=== PATIENT | female | born 1965 | race Caucasian/White ===

== ENCOUNTER 2023-03-30 06:00 | Observation (INO) | payer OTHER ==
[2023-03-30] MEDS ORDERED: KETOROLAC TROMETHAMINE 15 MG/ML VIAL IM ONE (08:12)
[2023-03-30] MEDS: KETOROLAC TROMETHAMINE 15 MG/ML VIAL IVPUSH ONE ×2 (08:16→08:18)
[2023-03-30] MEDS ORDERED: KETOROLAC TROMETHAMINE 15 MG/ML VIAL ONE (08:17)
[2023-03-30] MEDS ORDERED: predniSONE 10 MG TABLET (UD) PO ONE (08:58)
[2023-03-30] MEDS ORDERED: predniSONE 10 MG TABLET (UD) ONE (09:52)
[2023-03-30] MEDS ORDERED: morphine SULFATE 4 MG/ML VIAL IVPUSH ONE (10:35)
[2023-03-30] MEDS ORDERED: morphine SULFATE 4 MG/ML VIAL ONE (10:54)
[2023-03-30 11:20] LABS: BASO % 1.4 % (0-2.0); EOS % 1.9 % (0-4.5); HEMATOCRIT 25.3 % (32.4-45.2); HEMOGLOBIN 8.5 GM/dL (10.7-15.3); LYMPH % 14.7 % (8-40); MCH 27.6 pg (25.7-33.7); MCHC 33.5 g/dl (32.0-36.0); MEAN CELL VOLUME 82.4 fl (80-96); MEAN PLT VOLUME 6.9 fl (7.5-11.1); MONO % 6.6 % (3.8-10.2); NEUT % 75.4 % (42.8-82.8); PLATELET COUNT 653 10^3/uL (134-434); RBC 3.07 M/mm3 (3.60-5.2); RDW 15.6 % (11.6-15.6); WHITE BLOOD COUNT 10.4 K/mm3 (4.0-10.0)
[2023-03-30 11:25] LABS: INR 1.24 (0.83-1.09); PROTHROMBIN TIME (PATIENT) 14.4 SEC (9.7-13.0)
[2023-03-30 11:28] LABS: ACTIVATED PTT 26.7 SECONDS (25.2-36.5)
[2023-03-30 11:43] LABS: POTASSIUM 3.6 mmol/L (3.5-5.1)
[2023-03-30 11:46] LABS: CALCIUM 8.8 mg/dL (8.5-10.1)
[2023-03-30 11:47] LABS: ALBUMIN 2.4 g/dl (3.4-5.0); BLOOD UREA NITROGEN 6.2 mg/dL (7-18)
[2023-03-30 11:49] LABS: CREATININE 0.5 mg/dL (0.55-1.3)
[2023-03-30 11:51] LABS: BILIRUBIN,TOTAL 0.2 mg/dL (0.2-1); TOT PROT 6.2 g/dl (6.4-8.2)
[2023-03-30] MEDS ORDERED: SODIUM CHLORIDE 0.9% 1000 ML INFUS.BAG IV ONE (11:55)
[2023-03-30 16:52] VITALS: RESP 20
[2023-03-30 17:38] VITALS: BMI 31.0
[2023-03-30] MEDS: KETOROLAC TROMETHAMINE 15 MG/ML VIAL IVPUSH PRN (18:24)
[2023-03-30] MEDS: ACETAMINOPHEN 325 MG TABLET (FP) PO PRN (22:15)
[2023-03-31] MEDS: KETOROLAC TROMETHAMINE 15 MG/ML VIAL IVPUSH PRN (03:46)
[2023-03-31] MEDS: ACETAMINOPHEN 325 MG TABLET (FP) PO PRN (06:34)
[2023-03-31 08:12] LABS: BASO % 0.8 % (0-2.0); EOS % 3.8 % (0-4.5); HEMOGLOBIN 7.5 GM/dL (10.7-15.3); MCH 26.9 pg (25.7-33.7); MCHC 32.5 g/dl (32.0-36.0); MEAN PLT VOLUME 7.3 fl (7.5-11.1); MONO % 7.3 % (3.8-10.2); NEUT % 61.1 % (42.8-82.8); PLATELET COUNT 633 10^3/uL (134-434); RBC 2.77 M/mm3 (3.60-5.2); RDW 15.3 % (11.6-15.6); WHITE BLOOD COUNT 8.3 K/mm3 (4.0-10.0)
[2023-03-31 08:26] LABS: POTASSIUM 3.6 mmol/L (3.5-5.1)
[2023-03-31 08:35] LABS: TOT PROT 5.7 g/dl (6.4-8.2)
[2023-03-31 09:03] LABS: CALCIUM 9.1 mg/dL (8.5-10.1)
[2023-03-31 09:05] LABS: BLOOD UREA NITROGEN 6.9 mg/dL (7-18); MAGNESIUM 1.9 mg/dL (1.8-2.4)
[2023-03-31 09:08] LABS: CREATININE 0.4 mg/dL (0.55-1.3)
[2023-03-31 09:09] LABS: PHOSPHOROUS 3.3 mg/dL (2.5-4.9)
[2023-03-31 09:10] LABS: BILIRUBIN,TOTAL 0.3 mg/dL (0.2-1)
[2023-03-31] MEDS ORDERED: predniSONE 10 MG TABLET (UD) PO SCH (10:00)
[2023-03-31] MEDS ORDERED: PANTOPRAZOLE 40 MG TABLET PO SCH (10:00)
[2023-03-31] MEDS ORDERED: traMADol HCL 50 MG TABLET PO ONE (14:00)
[2023-03-31 18:04] VITALS: PULSE 99; TEMP 98
[2023-03-31 18:08] VITALS: BP 125/85
== END 2023-03-31 19:39 | disposition home health service (06) ==
LOC: JER 06:00 → JERBED 12:09 → J8W 16:58
PROVIDERS: ADMIT Internal Medicine; ATTEND Nurse Practitioner Family
PROC: 3E0233Z Introduction of Anti-inflammatory into Muscle, Percutaneous Approach (ICD-10-PCS; principal; 2023-03-30)
PROC: 3E0333Z Introduction of Anti-inflammatory into Peripheral Vein, Percutaneous Approach (ICD-10-PCS; 2023-03-30)
PROC: 3E033NZ Introduction of Analgesics, Hypnotics, Sedatives into Peripheral Vein, Percutaneous Approach (ICD-10-PCS; 2023-03-30)
PROC: 3E0337Z Introduction of Electrolytic and Water Balance Substance into Peripheral Vein, Percutaneous Approach (ICD-10-PCS; 2023-03-30)
DX: M06.9 Rheumatoid arthritis, unspecified (principal); R52 Pain, unspecified; D64.9 Anemia, unspecified; Z88.0 Allergy status to penicillin
CPT/HCPCS: 0241U-QW; 36415; 80053; 82272; 82607; 82728; 82746; 83540; 83550; 83735; 84100; 84443; 85025; 85610; 85730; 93005; 93010; 96372; 96374; 96375; 97116-GP; 97161-GP; 99285-25; G0378

== ENCOUNTER 2023-06-04 17:34 | Inpatient (IN) | payer OTHER ==
[2023-06-04 17:37] VITALS: BMI 32.1
[2023-06-04] MEDS ORDERED: predniSONE 20 MG TABLET (UD) ONE (19:44)
[2023-06-04] MEDS ORDERED: morphine SULFATE 4 MG/ML VIAL ONE (19:44)
[2023-06-04] MEDS: morphine CARPU-JECT 4 MG/1 ML DISP.SYRIN IVPUSH ONE (19:53)
[2023-06-04] MEDS: predniSONE 20 MG TABLET (UD) PO ONE (19:54)
[2023-06-04 20:00] LABS: BASO % 1.2 % (0-2.0); EOS % 1.9 % (0-4.5); HEMATOCRIT 30.7 % (32.4-45.2); HEMOGLOBIN 10.1 GM/dL (10.7-15.3); LYMPH % 20.3 % (8-40); MCH 26.3 pg (25.7-33.7); MCHC 32.8 g/dl (32.0-36.0); MEAN CELL VOLUME 80.3 fl (80-96); MEAN PLT VOLUME 6.8 fl (7.5-11.1); MONO % 5.7 % (3.8-10.2); NEUT % 70.9 % (42.8-82.8); PLATELET COUNT 743 10^3/uL (134-434); RBC 3.83 M/mm3 (3.60-5.2); RDW 17.2 % (11.6-15.6); WHITE BLOOD COUNT 8.7 K/mm3 (4.0-10.0)
[2023-06-04 20:25] LABS: POTASSIUM 4.4 mmol/L (3.5-5.1)
[2023-06-04 20:26] LABS: CALCIUM 9.1 mg/dL (8.5-10.1)
[2023-06-04 20:27] LABS: ALBUMIN 2.5 g/dl (3.4-5.0); BLOOD UREA NITROGEN 11.2 mg/dL (7-18)
[2023-06-04 20:30] LABS: CREATININE 0.5 mg/dL (0.55-1.3)
[2023-06-04 20:31] LABS: TOT PROT 6.9 g/dl (6.4-8.2)
[2023-06-04 20:32] LABS: BILIRUBIN,TOTAL 0.2 mg/dL (0.2-1)
[2023-06-04 21:21] LABS: ERYTHROCYTE SEDIMENTATION RATE 106 mm/hr (0-30)
[2023-06-05] MEDS: ACETAMINOPHEN 325 MG TABLET (FP) PO PRN (01:22)
[2023-06-05] MEDS: LACTATED RINGERS SOLUTION 1,000 ML/1,000 ML INFUS.BAG IV SCH (01:31)
[2023-06-05 02:48] LABS: EPI CELLS 13 /uL (0-25.1); HYALINE CASTS 0 /uL (0-3.1); PH,URINE 5.5 (5.0-8.0); URINE APPEARANCE CLOUDY; URINE BACTERIA >9,000 /uL (0-1359); URINE BILIRUBIN NEGATIVE (NEGATIVE); URINE COLOR YELLOW; URINE GLUCOSE (UA) NEGATIVE (NEGATIVE); URINE KETONE TRACE (NEGATIVE); URINE LEUK ESTERASE 2+ (NEGATIVE); URINE NITRITE NEGATIVE (NEGATIVE); URINE PROTEIN NEGATIVE (NEGATIVE); URINE RBC 14 /uL (0-23.9); URINE WBC 212 /uL (0-25.8)
[2023-06-05] MEDS: PANTOPRAZOLE 40 MG TABLET PO SCH (06:59)
[2023-06-05 09:00] LABS: BASO % 0.2 % (0-2.0); HEMATOCRIT 28.4 % (32.4-45.2); HEMOGLOBIN 9.3 GM/dL (10.7-15.3); LYMPH % 17.4 % (8-40); MCH 26.4 pg (25.7-33.7); MCHC 32.7 g/dl (32.0-36.0); MEAN CELL VOLUME 80.7 fl (80-96); MEAN PLT VOLUME 7.2 fl (7.5-11.1); MONO % 4.3 % (3.8-10.2); NEUT % 78.1 % (42.8-82.8); PLATELET COUNT 681 10^3/uL (134-434); RBC 3.52 M/mm3 (3.60-5.2); RDW 16.5 % (11.6-15.6)
[2023-06-05 09:17] LABS: POTASSIUM 4.5 mmol/L (3.5-5.1)
[2023-06-05 09:24] LABS: ALBUMIN 2.2 g/dl (3.4-5.0); BLOOD UREA NITROGEN 9.3 mg/dL (7-18)
[2023-06-05 09:26] LABS: CREATININE 0.4 mg/dL (0.55-1.3)
[2023-06-05 09:27] LABS: BILIRUBIN,TOTAL 0.2 mg/dL (0.2-1); TOT PROT 6.5 g/dl (6.4-8.2)
[2023-06-05] MEDS: predniSONE 20 MG TABLET (UD) PO SCH (10:57)
[2023-06-06] MEDS: predniSONE 20 MG TABLET (UD) PO SCH (06:14)
[2023-06-06 10:03] LABS: BASO % 0.7 % (0-2.0); EOS % 0.3 % (0-4.5); HEMATOCRIT 29.9 % (32.4-45.2); HEMOGLOBIN 9.5 GM/dL (10.7-15.3); LYMPH % 15.7 % (8-40); MCH 25.6 pg (25.7-33.7); MCHC 31.6 g/dl (32.0-36.0); MEAN CELL VOLUME 80.9 fl (80-96); MEAN PLT VOLUME 7.3 fl (7.5-11.1); MONO % 3.4 % (3.8-10.2); NEUT % 79.9 % (42.8-82.8); PLATELET COUNT 736 10^3/uL (134-434); RDW 16.8 % (11.6-15.6); WHITE BLOOD COUNT 11.9 K/mm3 (4.0-10.0)
[2023-06-06] MEDS: LEFLUNOMIDE 10 MG TABLET PO SCH (10:03)
[2023-06-06 10:24] LABS: POTASSIUM 4.3 mmol/L (3.5-5.1)
[2023-06-06 10:43] LABS: CALCIUM 9.5 mg/dL (8.5-10.1)
[2023-06-06 10:44] LABS: BLOOD UREA NITROGEN 12.3 mg/dL (7-18)
[2023-06-06 10:47] LABS: CREATININE 0.5 mg/dL (0.55-1.3)
[2023-06-06] MEDS ORDERED: morphine CARPU-JECT 2 MG/1 ML DISP.SYRIN IVPUSH PRN (13:33)
[2023-06-06] MEDS: IBUPROFEN 400 MG TABLET (FP) PO SCH (14:03)
[2023-06-07 08:33] LABS: BASO % 0.7 % (0-2.0); EOS % 1.4 % (0-4.5); HEMATOCRIT 27.8 % (32.4-45.2); HEMOGLOBIN 9.1 GM/dL (10.7-15.3); LYMPH % 34.6 % (8-40); MCH 26.4 pg (25.7-33.7); MCHC 32.8 g/dl (32.0-36.0); MEAN CELL VOLUME 80.6 fl (80-96); MEAN PLT VOLUME 7.1 fl (7.5-11.1); NEUT % 56.3 % (42.8-82.8); PLATELET COUNT 713 10^3/uL (134-434); RBC 3.44 M/mm3 (3.60-5.2); WHITE BLOOD COUNT 11.1 K/mm3 (4.0-10.0)
[2023-06-07 08:41] LABS: POTASSIUM 3.8 mmol/L (3.5-5.1)
[2023-06-07 08:44] LABS: ALBUMIN 2.4 g/dl (3.4-5.0); CALCIUM 9.2 mg/dL (8.5-10.1)
[2023-06-07 08:45] LABS: BLOOD UREA NITROGEN 13.2 mg/dL (7-18); MAGNESIUM 2.2 mg/dL (1.8-2.4)
[2023-06-07 08:48] LABS: CREATININE 0.5 mg/dL (0.55-1.3); PHOSPHOROUS 4.4 mg/dL (2.5-4.9)
[2023-06-07 08:49] LABS: BILIRUBIN,TOTAL 0.2 mg/dL (0.2-1); TOT PROT 6.2 g/dl (6.4-8.2)
[2023-06-07] MEDS: ENOXAPARIN NA (PORCINE) 40 MG/0.4 ML DISP.SYRIN SQ ONE ×2 (13:03→13:37)
[2023-06-07] MEDS ORDERED: ENOXAPARIN NA (PORCINE) 40 MG/0.4 ML DISP.SYRIN SQ SCH (22:00)
[2023-06-08 04:58] VITALS: RESP 18
[2023-06-08 07:31] LABS: POTASSIUM 3.8 mmol/L (3.5-5.1)
[2023-06-08 07:38] LABS: CALCIUM 8.6 mg/dL (8.5-10.1)
[2023-06-08 07:39] LABS: ALBUMIN 2.4 g/dl (3.4-5.0); BLOOD UREA NITROGEN 11.4 mg/dL (7-18); MAGNESIUM 1.9 mg/dL (1.8-2.4)
[2023-06-08 07:42] LABS: CREATININE 0.5 mg/dL (0.55-1.3); PHOSPHOROUS 4.2 mg/dL (2.5-4.9)
[2023-06-08 07:43] LABS: BILIRUBIN,TOTAL 0.2 mg/dL (0.2-1); TOT PROT 6.2 g/dl (6.4-8.2)
[2023-06-08 07:53] LABS: BASO % 0.6 % (0-2.0); EOS % 1.6 % (0-4.5); HEMATOCRIT 29.2 % (32.4-45.2); HEMOGLOBIN 9.8 GM/dL (10.7-15.3); LYMPH % 35.4 % (8-40); MCHC 33.6 g/dl (32.0-36.0); MEAN CELL VOLUME 80.4 fl (80-96); MEAN PLT VOLUME 7.1 fl (7.5-11.1); MONO % 7.9 % (3.8-10.2); NEUT % 54.5 % (42.8-82.8); PLATELET COUNT 711 10^3/uL (134-434); RBC 3.64 M/mm3 (3.60-5.2); RDW 16.7 % (11.6-15.6); WHITE BLOOD COUNT 10.6 K/mm3 (4.0-10.0)
[2023-06-08] MEDS: ENOXAPARIN NA (PORCINE) 40 MG/0.4 ML DISP.SYRIN SQ SCH (10:14)
[2023-06-09 10:02] LABS: BASO % 0.6 % (0-2.0); EOS % 2.3 % (0-4.5); HEMATOCRIT 30.8 % (32.4-45.2); HEMOGLOBIN 9.8 GM/dL (10.7-15.3); LYMPH % 30.9 % (8-40); MCHC 31.8 g/dl (32.0-36.0); MEAN CELL VOLUME 81.6 fl (80-96); MEAN PLT VOLUME 7.3 fl (7.5-11.1); MONO % 6.7 % (3.8-10.2); NEUT % 59.5 % (42.8-82.8); PLATELET COUNT 753 10^3/uL (134-434); RBC 3.77 M/mm3 (3.60-5.2); RDW 17.2 % (11.6-15.6); WHITE BLOOD COUNT 13.3 K/mm3 (4.0-10.0)
[2023-06-09 10:11] LABS: POTASSIUM 3.9 mmol/L (3.5-5.1)
[2023-06-09 10:18] LABS: ALBUMIN 2.6 g/dl (3.4-5.0)
[2023-06-09 10:19] LABS: BLOOD UREA NITROGEN 10.8 mg/dL (7-18); MAGNESIUM 2.3 mg/dL (1.8-2.4)
[2023-06-09 10:21] LABS: PHOSPHOROUS 4.2 mg/dL (2.5-4.9)
[2023-06-09 10:22] LABS: CREATININE 0.5 mg/dL (0.55-1.3)
[2023-06-09 10:23] LABS: BILIRUBIN,TOTAL 0.2 mg/dL (0.2-1); TOT PROT 6.4 g/dl (6.4-8.2)
[2023-06-09] MEDS: oxyCODONE HCL 5 MG TABLET PO ONE (10:54)
[2023-06-10] MEDS: oxyCODONE HCL 5 MG TABLET PO PRN (08:37)
[2023-06-10 09:00] LABS: POTASSIUM 4.1 mmol/L (3.5-5.1)
[2023-06-10 09:16] LABS: ALBUMIN 2.4 g/dl (3.4-5.0); CALCIUM 9.1 mg/dL (8.5-10.1)
[2023-06-10 09:17] LABS: MAGNESIUM 2.2 mg/dL (1.8-2.4)
[2023-06-10 09:18] LABS: CREATININE 0.5 mg/dL (0.55-1.3); PHOSPHOROUS 3.8 mg/dL (2.5-4.9)
[2023-06-10 09:19] LABS: BILIRUBIN,TOTAL 0.2 mg/dL (0.2-1); TOT PROT 5.9 g/dl (6.4-8.2)
[2023-06-10 09:35] LABS: BASO % 0.5 % (0-2.0); HEMATOCRIT 29.4 % (32.4-45.2); HEMOGLOBIN 9.4 GM/dL (10.7-15.3); LYMPH % 32.5 % (8-40); MCH 26.5 pg (25.7-33.7); MEAN CELL VOLUME 82.7 fl (80-96); MEAN PLT VOLUME 7.3 fl (7.5-11.1); MONO % 6.8 % (3.8-10.2); NEUT % 58.2 % (42.8-82.8); PLATELET COUNT 689 10^3/uL (134-434); RBC 3.56 M/mm3 (3.60-5.2); RDW 17.4 % (11.6-15.6); WHITE BLOOD COUNT 11.7 K/mm3 (4.0-10.0)
[2023-06-10 16:04] VITALS: BP 117/58; PULSE 77; TEMP 97.7
== END 2023-06-10 15:25 | disposition home or self-care (01) | DRG 346 ==
LOC: JER 17:34 → JERBED 21:13 → OBSVTOIN 23:54 → J6S 06-05 00:54
PROVIDERS: ADMIT Internal Medicine; ATTEND Internal Medicine
DX: M06.9 Rheumatoid arthritis, unspecified (principal); D50.9 Iron deficiency anemia, unspecified; D63.8 Anemia in other chronic diseases classified elsewhere; D72.829 Elevated white blood cell count, unspecified
CPT/HCPCS: 0241U-QW; 36415; 71046-TC-FY; 80048; 80053; 81003; 82272; 82728; 83540; 83550; 83735; 84100; 84443; 84466; 85025; 85045; 85651; 86140; 93005; 93010; 97116-GP; 97162-GP; 99285-25; G0378